=== PATIENT | female | born 1995 | race Caucasian/White ===

== ENCOUNTER 2023-02-03 08:11 | Inpatient (IN) | payer BC ==
[2023-02-04] MEDS ORDERED: Lactated Ringer's 1,000 ML IV PRN (22:32)
[2023-02-04] MEDS ORDERED: Ibuprofen 800 MG TAB PO PRN (22:32)
[2023-02-04] MEDS ORDERED: HYDROcodone/Acetaminophen 5/325 mg Tablet PO PRN ×2 (22:32)
[2023-02-04] MEDS ORDERED: Promethazine HCl 25 MG/ML VIAL IM PRN (22:32)
[2023-02-04] MEDS ORDERED: hydrALAZINE 20 MG/ML VIAL SLOW IVP PRN (22:32)
[2023-02-04] MEDS ORDERED: Lidocaine 1% (PF) 30 ML VIAL SC PRN (22:32)
[2023-02-04] MEDS ORDERED: Ondansetron PF 4 MG/2 ML Vial IVP PRN (22:32)
[2023-02-04] MEDS ORDERED: Oxytocin 30 units/NS 500 ML 500 ML IV SCH (22:45)
[2023-02-04 23:20] LABS: Hematocrit 32.1 % (34.9-44.5); Hemoglobin 10.3 g/dL (12.0-15.5); Mean Corpuscular HGB CONC 32.1 g/dL (32.0-36.0); Mean Corpuscular Hemoglobin 26.8 pg (27.0-33.0); Mean Corpuscular Volume 83.4 fl (81.6-98.3); Mean Platelet Volume 10.8 fl (7.4-10.4); Platelet Count 207 10x3/uL (150-450); Red Blood Cell (RBC) Count 3.85 10x6/uL (3.90-5.03)
[2023-02-04] MEDS ORDERED: Lidocaine 1% PF 10 ML AMP ONE (23:20)
[2023-02-04] MEDS ORDERED: Lidocaine 1% (PF) 30 ML VIAL ONE (23:24)
[2023-02-04 23:35] LABS: HBSAg Index 0.18 S/CO (0-0.99); Hep B Surf Ag - L&D Non-Reactive S/CO (NonReactive)
[2023-02-04 23:36] LABS: Syphilis Antibody Nonreactive (Nonreactive); Syphilis Antibody Index 0.02 S/CO (<1.00 Non-Reactive)
[2023-02-05] MEDS: Misoprostol 200 MCG TAB ONE ×2 (04:34→05:22)
[2023-02-05] MEDS ORDERED: Boostrix 0.5 ML (Tdap) VIAL (>/=7 yrs of age) IM ONE (04:45)
[2023-02-05] MEDS ORDERED: Oxytocin 30 units/NS 500 ML 500 ML IV SCH (04:45)
[2023-02-05] MEDS ORDERED: Benzocaine-Menthol 82.5 ML CAN TOP PRN (04:45)
[2023-02-05] MEDS ORDERED: Lanolin Ointment 7 GM TUBE TOP PRN (04:45)
[2023-02-05] MEDS ORDERED: Ondansetron PF 4 MG/2 ML Vial IVP PRN (04:45)
[2023-02-05] MEDS ORDERED: Bisacodyl 10 MG SUPP PR PRN (04:45)
[2023-02-05] MEDS ORDERED: hydrALAZINE 20 MG/ML VIAL SLOW IVP PRN (04:45)
[2023-02-05] MEDS ORDERED: Milk Of Magnesia 30 ML UDCUP PO PRN (04:45)
[2023-02-05] MEDS ORDERED: Misoprostol 200 MCG TAB VAG PRN (04:45)
[2023-02-05] MEDS ORDERED: Methylergonovine 0.2 MG/ML VIAL IM PRN (04:45)
[2023-02-05] MEDS: Ibuprofen 800 MG TAB PO SCH ×3 (05:42→22:10)
[2023-02-05] MEDS ORDERED: Witch Hazel-Glycerin 1 EACH JAR TOP PRN (08:48)
[2023-02-05] MEDS ORDERED: HYDROcodone/Acetaminophen 5/325 mg Tablet PO PRN ×2 (09:44)
[2023-02-05] MEDS: Docusate 100 MG CAP PO SCH ×2 (10:45→22:10)
[2023-02-05] MEDS: Ferrous Sulfate 325 MG TAB PO SCH ×2 (10:45→19:09)
[2023-02-05] MEDS: Prenatal Vitamin 1 TAB PO SCH (10:45)
[2023-02-06 04:15] VITALS: TEMP 97.7
[2023-02-06] MEDS: Ibuprofen 800 MG TAB PO SCH (05:39)
[2023-02-06 07:35] VITALS: BP 130/75
[2023-02-06] MEDS: Ferrous Sulfate 325 MG TAB PO SCH (07:45)
[2023-02-06] MEDS: Docusate 100 MG CAP PO SCH (08:14)
[2023-02-06] MEDS: Prenatal Vitamin 1 TAB PO SCH (11:14)
== END 2023-02-06 12:10 | disposition home or self-care (01) | DRG 807 ==
LOC: CSHLD 02-04 22:04 → CSHPP 02-05 06:10
PROVIDERS: ADMIT Obstetrics & Gynecology; ATTEND Obstetrics & Gynecology
PROC: 10E0XZZ Delivery of Products of Conception, External Approach (ICD-10-PCS; principal; 2023-02-05)
DX: O80 Encounter for full-term uncomplicated delivery (principal); Z37.0 Single live birth; Z3A.40 40 weeks gestation of pregnancy
CPT/HCPCS: 85027; 86780; 86850; 86900; 86901; 87340